=== PATIENT | male | born 1995 | race African-American/Black ===

== ENCOUNTER 2018-01-21 01:23 | Emergency (ER) | payer OTHER ==
[~2018-01-21] VITALS: Ht 180.3 cm; Wt 117.9 kg
[~2018-01-21 01:23] MED LIST: ADDERALL 30 MG30 MG PO; IBUPROFEN 800800 MG PO; SINGULAIR 10 MG10 M1 PO
[2018-01-21 01:46] VITALS: BP 139/64
== END 2018-01-21 04:52 | disposition home or self-care (01) ==
LOC: ER 01:23
DX: Z04.41 Encounter for examination and observation following alleged adult rape (principal)

== ENCOUNTER 2018-06-20 22:11 | Emergency (ER) | payer OTHER ==
[~2018-06-20] VITALS: Ht 182.9 cm; Wt 117.9 kg
[2018-06-20] MEDS ORDERED: MUCINEX100 MG (22:25)
[2018-06-20 23:11] VITALS: BP 135/72
== END 2018-06-20 23:42 | disposition left against medical advice (07) ==
LOC: ER 22:11
DX: J06.9 Acute upper respiratory infection, unspecified (principal)

== ENCOUNTER 2018-09-18 20:31 | Emergency (ER) | payer OTHER ==
[~2018-09-18] VITALS: Ht 180.3 cm; Wt 113.4 kg
[~2018-09-18 20:31] MED LIST changes: +MUCINEX100 MG
[2018-09-18] MEDS ORDERED: AMOXICILLIN 50500 MG PO (21:26)
[2018-09-18 21:47] VITALS: BP 178/118
== END 2018-09-18 21:48 | disposition home or self-care (01) ==
LOC: ER 20:31
DX: K02.9 Dental caries, unspecified (principal)

== ENCOUNTER → 2019-04-30 | Emergency (ER) | payer OTHER ==
[~2019-04-30] VITALS: Ht 177.8 cm; Wt 117.9 kg
[~2019-04-30] MED LIST changes: +AMOXICILLIN 50500 MG PO; +MAPAP500 MG
[2019-04-30 22:25] VITALS: BP 144/56
== END ==
LOC: ER 21:42
DX: K62.89 Other specified diseases of anus and rectum (principal)

== ENCOUNTER 2019-07-22 20:57 | Emergency (ER) | payer OTHER ==
[~2019-07-22] VITALS: Ht 177.8 cm; Wt 108.9 kg
[2019-07-22] MEDS ORDERED: PROAIR HFA8.5 GM INH (21:24)
[2019-07-22] MEDS ORDERED: PREDNISONE 20 M20 MG PO (21:24)
[2019-07-22 21:43] VITALS: BP 117/65
== END 2019-07-22 21:45 | disposition home or self-care (01) ==
LOC: ER 20:57
DX: J45.909 Unspecified asthma, uncomplicated (principal); Z88.1 Allergy status to other antibiotic agents

== ENCOUNTER 2019-12-22 08:17 | Emergency (ER) | payer OTHER ==
[~2019-12-22] VITALS: Ht 180.3 cm; Wt 113.4 kg
[~2019-12-22 08:17] MED LIST changes: +PREDNISONE 20 M20 MG PO; +PROAIR HFA8.5 GM INH
[2019-12-22 08:19] VITALS: BP 140/78
[2019-12-22] MEDS ORDERED: NOHOMEMEDICATIONS (08:22)
[2019-12-22] MEDS ORDERED: VENTOLIN HFA 1818 GM INH (08:35)
[2019-12-22] MEDS ORDERED: PREDNISONE 20 M20 MG PO (08:35)
== END 2019-12-22 09:09 | disposition home or self-care (01) ==
LOC: ER 08:17
DX: J45.901 Unspecified asthma with (acute) exacerbation (principal); Z20.828 Contact with and (suspected) exposure to other viral communicable diseases; Z88.1 Allergy status to other antibiotic agents

== ENCOUNTER 2020-01-07 18:36 | Emergency (ER) | payer OTHER ==
[~2020-01-07] VITALS: Ht 180.3 cm; Wt 122.5 kg
[~2020-01-07 18:36] MED LIST changes: +NOHOMEMEDICATIONS; +VENTOLIN HFA 1818 GM INH
[2020-01-07 19:39] LABS: ABSOLUTE NEUTROPHILS 2.7 thou/uL (1.4-8.2); BASOPHILS 0.8 % (0.0-2.0); HEMATOCRIT 46.8 % (42.0-52.0); HEMOGLOBIN 15.9 gm/dL (14.0-18.0); LYMPHOCYTES 40.7 % (24.0-44.0); MCH 28.8 pg (26.0-34.0); MCHC 33.9 g/dL (28.0-37.0); MCV 84.7 fL (80.0-100.0); MONOCYTES 8.4 % (1.0-8.0); PLATELET COUNT 208 thou/uL (150-400); POLYS 45.1 % (36.0-66.0); RBC 5.52 mil/uL (4.50-6.00); RDW 13.5 % (10.5-14.5)
[2020-01-07 19:41] LABS: URINE BILIRUBIN NEGATIVE (Negative); URINE BLOOD NEGATIVE (Negative); URINE CLARITY CLEAR; URINE COLOR YELLOW; URINE GLUCOSE-RANDOM* NEGATIVE (Negative); URINE KETONES NEGATIVE (Negative); URINE LEUKOCYTES-REFLEX NEGATIVE (Negative); URINE NITRITE-REFLEX NEGATIVE (Negative); URINE PROTEIN (DIPSTICK) 1+ (Negative); URINE SPECIFIC GRAVITY >= 1.030 (1.005-1.035)
[2020-01-07 19:50] LABS: CALCIUM 8.4 mg/dL (8.5-10.1); POTASSIUM 3.6 mmol/L (3.5-5.1)
[2020-01-07 19:53] LABS: BACTERIA-REFLEX 1-9 Few /HPF (None Seen); CASTS None Seen /LPF (None Seen); CRYSTALS None Seen /LPF (None Seen); SQUAMOUS None Seen /LPF (0-3); URINE RBC 3-10 Few /HPF (0-2); URINE WBC-REFLEX None Seen /HPF (0-5)
[2020-01-07 20:04] LABS: ALBUMIN 3.8 g/dL (3.4-5.0); DIRECT BILIRUBIN 0.1 mg/dL (<0.1-0.2); TOTAL BILIRUBIN 0.6 mg/dL (0.2-1.0); TOTAL PROTEIN 7.7 g/dL (6.4-8.2)
[2020-01-07 20:15] VITALS: BP 146/69
[2020-01-07] MEDS ORDERED: ONDANSETRON HCL4 M2 PO (20:18)
== END 2020-01-07 20:56 | disposition home or self-care (01) ==
LOC: ER 18:36
PROVIDERS: Nurse Practitioner
DX: K52.9 Noninfective gastroenteritis and colitis, unspecified (principal); E66.9 Obesity, unspecified; Z79.899 Other long term (current) drug therapy; Z88.1 Allergy status to other antibiotic agents; Z68.37 Body mass index [BMI] 37.0-37.9, adult

== ENCOUNTER 2020-03-23 05:16 | Emergency (ER) | payer OTHER ==
[~2020-03-23] VITALS: Ht 180.3 cm; Wt 113.4 kg
[~2020-03-23 05:16] MED LIST changes: +ONDANSETRON HCL4 M2 PO
[2020-03-23 05:18] VITALS: BP 134/70
[2020-03-23] MEDS ORDERED: VENTOLIN HFA 1818 GM INH (07:28)
== END 2020-03-23 08:02 | disposition home or self-care (01) ==
LOC: ER 05:16
DX: J45.909 Unspecified asthma, uncomplicated (principal); M79.645 Pain in left finger(s); Z76.0 Encounter for issue of repeat prescription; Z79.899 Other long term (current) drug therapy; Z88.1 Allergy status to other antibiotic agents; Z88.8 Allergy status to other drugs, medicaments and biological substances

== ENCOUNTER 2020-10-25 20:53 | Emergency (ER) | payer OTHER ==
[~2020-10-25] VITALS: Ht 180.3 cm; Wt 117.9 kg
[2020-10-25] MEDS ORDERED: NORCO5 PO (22:35)
[2020-10-25] MEDS ORDERED: AMOXICILLIN500 M1 PO (22:35)
[2020-10-25 22:46] VITALS: BP 137/84
== END 2020-10-25 22:48 | disposition home or self-care (01) ==
LOC: ER 20:53
DX: K03.81 Cracked tooth (principal); J45.909 Unspecified asthma, uncomplicated; Z79.51 Long term (current) use of inhaled steroids; Z88.1 Allergy status to other antibiotic agents

== ENCOUNTER 2020-12-28 16:22 | Emergency (ER) | payer OTHER ==
[~2020-12-28] VITALS: Ht 180.3 cm; Wt 117.9 kg
[~2020-12-28 16:22] MED LIST changes: +AMOXICILLIN500 M1 PO; +NORCO5 PO
[2020-12-28 18:12] VITALS: BP 169/71
[2020-12-28] MEDS ORDERED: ZYRTEC10 MG PO (18:15)
[2020-12-28] MEDS ORDERED: VENTOLIN HFA 1818 GM INH (18:15)
[2020-12-28] MEDS ORDERED: PREDNISONE 20 M20 MG PO (18:15)
== END 2020-12-28 18:12 | disposition home or self-care (01) ==
LOC: ER 16:22
DX: J45.901 Unspecified asthma with (acute) exacerbation (principal); Z79.51 Long term (current) use of inhaled steroids; Z79.891 Long term (current) use of opiate analgesic; Z79.899 Other long term (current) drug therapy; Z88.1 Allergy status to other antibiotic agents; Z88.8 Allergy status to other drugs, medicaments and biological substances

== ENCOUNTER 2021-04-12 07:48 | Emergency (ER) | payer OTHER ==
[~2021-04-12] VITALS: Ht 180.3 cm; Wt 117.9 kg
[~2021-04-12 07:48] MED LIST changes: +ZYRTEC10 MG PO
[2021-04-12 07:51] VITALS: BP 161/107
[2021-04-12] MEDS ORDERED: PERCOCET 5-3251 EACH PO (08:57)
== END 2021-04-12 09:09 | disposition home or self-care (01) ==
LOC: ER 07:48
DX: S62.624A Displaced fracture of middle phalanx of right ring finger, initial encounter for closed fracture (principal); J45.909 Unspecified asthma, uncomplicated; Z88.1 Allergy status to other antibiotic agents; Z79.899 Other long term (current) drug therapy; Y04.0XXA Assault by unarmed brawl or fight, initial encounter; Y93.89 Activity, other specified; Y92.89 Other specified places as the place of occurrence of the external cause; Y99.9 Unspecified external cause status

== ENCOUNTER 2021-05-14 05:38 | Emergency (ER) | payer OTHER ==
[~2021-05-14] VITALS: Ht 175.3 cm; Wt 90.7 kg
[~2021-05-14 05:38] MED LIST changes: +PERCOCET 5-3251 EACH PO
[2021-05-14 05:44] VITALS: BP 136/68
== END 2021-05-14 06:06 | disposition home or self-care (01) ==
LOC: ER 05:38
DX: S69.82XD Other specified injuries of left wrist, hand and finger(s), subsequent encounter (principal); J45.909 Unspecified asthma, uncomplicated; Z79.51 Long term (current) use of inhaled steroids; Z79.891 Long term (current) use of opiate analgesic; Z79.899 Other long term (current) drug therapy; Z88.1 Allergy status to other antibiotic agents; Z88.8 Allergy status to other drugs, medicaments and biological substances; X58.XXXD Exposure to other specified factors, subsequent encounter